=== PATIENT | male | born 1965 | race American Indian/Alaskan Native ===

== ENCOUNTER 2016-11-10 12:10 | Emergency (ER) | payer SELFPAY ==
[2016-11-10 12:21] VITALS: BP 126/85
== END 2016-11-10 13:21 | disposition left against medical advice (07) ==
LOC: ED 12:10
DX: K59.00 Constipation, unspecified (principal); Z53.21 Procedure and treatment not carried out due to patient leaving prior to being seen by health care provider

== ENCOUNTER 2017-02-18 16:07 | Emergency (ER) | payer MEDICARE ==
[2017-02-18 16:54] LABS: Basophils % (Auto) 0.6 % (0.0-1.8); Hematocrit 51.8 % (35.5-45.6); Hemoglobin 16.5 gm/dl (11.8-15.2); Mean Corpuscular HGB Conc 32 % (32-34); Mean Corpuscular Hemoglobin 29 pg (28-32); Mean Corpuscular Volume 90 fl (84-94); Platelet Count 165 K/mm3 (140-440); Red Blood Count 5.77 M/mm3 (3.65-5.03); Red Cell Distribution Width 13.6 % (13.2-15.2); White Blood Count 13.8 K/mm3 (4.5-11.0)
[2017-02-18 17:10] LABS: Urine Drugs of Abuse Note Disclamer
[2017-02-18 17:20] LABS: Anion Gap 17 mmol/L; BUN/Creatinine Ratio 12; Blood Urea Nitrogen 14 mg/dL (9-20); Calcium 9.8 mg/dL (8.4-10.2); Carbon Dioxide 29 mmol/L (22-30); Chloride 98.5 mmol/L (98-107); Glucose 107 mg/dL (75-100); Potassium 3.9 mmol/L (3.6-5.0); Sodium 141 mmol/L (137-145)
[2017-02-18 17:27] LABS: Bacteria,Urine 1+ /HPF (Negative); Bilirubin,Urine NEG (Negative); Blood,Urine NEG (Negative); Ketones,Urine NEG (Negative); Leukocyte Esterase,Urine NEG (Negative); Nitrite,Urine NEG (Negative); Protein,Urine <15 mg/dL mg/dL (Negative); WBC,Urine < 1.0 /HPF (0.0-6.0)
--- NOTE | 2017-02-18 20:53 | Emergency Department Report ---
HPI - General Chief Complaint: Psych Time Seen by Provider: 02/18/17 20:37 - HPI HPI: This is a 52 year-old male presents to the emergency department with the need for a mental health evaluation and/or medical clearance for psych. The patient was here yesterday for the complaint of chest pain and was admitted to the hospital where he had a negative stress test and was discharged earlier today. I saw him for that initial evaluation and at that time he did discuss some depression and a history of substance abuse for crack cocaine. He says that he is scared that if he does not get help "I will ." He has had 2 unintentional overdoses in the past. When he was discharged from here earlier, he was encouraged to go to [facility] but he mentioned that he was having suicidal ideations and was told that he needs to come back to the emergency department for another evaluation and medical clearance. He currently denies any chest pain. He denies any recent illicit drug use. He does not have a plan. He denies any homicidal ideations or any hallucinations. ED Past Medical Hx - Past Medical History Previous Medical History?: Yes Hx Hypertension: Yes Hx CVA: No Hx Heart Attack/AMI: Yes Hx Congestive Heart Failure: No Hx Diabetes: No Hx Deep Vein Thrombosis: No Hx GERD: No Hx Arthritis: No Hx Headaches / Migraines: No Hx Psychiatric Treatment: Yes (DEPRESSION / ANXIETY) Hx Asthma: No Hx COPD: No Hx Dementia: No Hx HIV: No Additional medical history: HIGH CHOLESTEROL. SUBSTANCE ABUSE. heart valve leak (aortic valve) - Surgical History Hx Open Heart Surgery: Yes ("D/T LEAKY VALVE") Hx Pacemaker: No - Social History Smoking Status: Current Every Day Smoker - Medications Home Medications: Home Medications Medication Instructions Recorded Confirmed Last Taken Type Hydroxyzine HCl [hydrOXYzine] 50 mg PO Q8H PRN 02/17/17 02/17/17 02/15/17 History Quetiapine Fumarate [Seroquel] 100 mg PO QDAY 02/17/17 02/17/17 02/15/17 History Sertraline [Zoloft] 50 mg PO QDAY 02/17/17 02/17/17 02/15/17 History AtorvaSTATin [Lipitor] 40 mg PO QDAY #20 tablet 02/18/17 Unknown Rx Famotidine [Pepcid] 20 mg PO QDAY #30 tablet 02/18/17 Unknown Rx Lisinopril [Zestril TAB] 20 mg PO QDAY #20 tablet 02/18/17 Unknown Rx Nicotine [Habitrol] 21 mg TD QDAY #7 patch 02/18/17 Unknown Rx ED Review of Systems ROS: Stated complaint: MEDICAL CLEARANCE, SUICIDAL THOUGHTS Other details as noted in HPI Comment: All other systems reviewed and negative Constitutional: denies: chills, fever Eyes: denies: eye pain, eye discharge, vision change ENT: denies: ear pain, throat pain Respiratory: denies: cough, shortness of breath, wheezing Cardiovascular: denies: chest pain, palpitations Gastrointestinal: denies: abdominal pain, nausea, diarrhea Genitourinary: denies: urgency, dysuria Musculoskeletal: denies: back pain, joint swelling, arthralgia Skin: denies: rash, lesions Neurological: denies: headache, weakness, paresthesias Psychiatric: depression, suicidal thoughts. denies: auditory hallucinations, visual hallucinations, homicidal thoughts Physical Exam - Physical Exam Vital Signs: Vital Signs 02/18/17 16:32 Temperature 98.4 F Pulse Rate 96 H Respiratory 16 Rate Blood Pressure 130/95 O2 Sat by Pulse 98 Oximetry Physical Exam: GENERAL: The patient is well-developed well-nourished. HENT: Normocephalic. Atraumatic. Patient has moist mucous membranes. EYES: Extraocular motions are intact. Pupils equal reactive to light bilaterally. NECK: Supple. Trachea is midline. CHEST/LUNGS: Clear to auscultation. There is no respiratory distress noted. HEART/CARDIOVASCULAR: Regular. There is no tachycardia. There is no gallop rub or murmur. ABDOMEN: Abdomen is soft, nontender. Patient has normal bowel sounds. There is no abdominal distention. SKIN: Skin is warm and dry. NEURO: The patient is awake, alert, and oriented. The patient is cooperative. The patient has no focal neurologic deficits. The patient has normal speech and gait. MUSCULOSKELETAL: There is no tenderness or deformity. There is no limitation range of motion. There is no evidence of acute injury. ED Course Vital Signs 02/18/17 16:32 Temperature 98.4 F Pulse Rate 96 H Respiratory 16 Rate Blood Pressure 130/95 O2 Sat by Pulse 98 Oximetry ED Medical Decision Making - Lab Data Result diagrams: 02/18/17 16:41 02/18/17 16:41 - Medical Decision Making 52-year-old male presents with depression and suicidal ideations without a plan. He is trying to find some type of a "medical terminologist plan" to help him with his addiction problems but he does have more acute depression and some suicidal ideations at this time. Labs are unremarkable except for UDS positive for marijuana. Vital signs stable. He does not appear to have any focal, motor or sensory deficits. He appears medically cleared for psychiatric placement. He is admitted 1013 secondary to his suicidal ideations. - Differential Diagnosis depression, substance abuse, bipolar, schizoaffective Critical Care Time: No Critical care attestation.: If time is entered above; I have spent that time in minutes in the direct care of this critically ill patient, excluding procedure time. ED Disposition Clinical Impression: Suicidal ideations, History of crack cocaine use Depression Qualifiers: Depression Type: unspecified Qualified Code(s): F32.9 - Major depressive disorder, single episode, unspecified Disposition: [id number]/[id number] PSY HOSP/PSY UNIT Is pt being admited?: No Condition: Stable Referrals: PRIMARY CARE, [Primary Care Provider] - 3-5 Days Time of Disposition: 20:53
[2017-02-19] MEDS ORDERED: HABITROL TD SCH (10:00)
[2017-02-19] MEDS ORDERED: ZESTRIL PO SCH (10:00)
[2017-02-19] MEDS ORDERED: ZOLOFT PO SCH (10:00)
[2017-02-19] MEDS ORDERED: PEPCID PO SCH (10:00)
[2017-02-19 10:53] VITALS: BP 151/91
== END 2017-02-19 10:53 ==
LOC: ED 16:07
DX: F32.9 Major depressive disorder, single episode, unspecified (principal); R45.851 Suicidal ideations; F14.10 Cocaine abuse, uncomplicated
CPT/HCPCS: 36415; 80048; 80307; 81001; 85025; 99285; G0480; 80320